=== PATIENT | male | born 1960 | race Asian ===

== ENCOUNTER 2019-08-11 11:13 | Emergency (ER) | payer MEDICAID ==
[~2019-08-11] VITALS: Ht 160 cm; Wt 72.6 kg
[2019-08-11 11:26] VITALS: BP 160/102
--- NOTE | 2019-08-11 11:40 | NUR ---
BIB FAMILY C/O MULTIPLE EPISODES OF VOMITING AND DIZZINESS THIS MORNING. PT IS UNABLE TO AMBULATE DUE TO GENERALIZED WEAKNESS. PATIENT DENIES POST AND STATES PAIN OF 0/10 AT THIS TIME; PT IS HYPERTENSIVE AND DID NOT TAKE [place] THIS MORNING. PATIENT POSITIONED FOR COMFORT; HOB ELEVATED; BEDRAILS UP X2; BED DOWN. ER MD MADE AWARE OF PT STATUS. PT IS ON MONITOR FOR VITAL SIGNS MONITORING. FAMILY MEMBERS ARE AT BEDSIDE.
--- NOTE | 2019-08-11 11:41 | NUR ---
NOTIFIED DR. ODOM REGARDING PT'S CONDITION.
--- NOTE | 2019-08-11 11:43 | NUR ---
DR. ODOM IS EVALUATING PT AT BEDSIDE.
--- NOTE | 2019-08-11 11:49 | NUR ---
DR. ODOM CALLED CODE BRAIN.
--- NOTE | 2019-08-11 11:49 | NUR ---
Trenton arevalo in [facility] - 08/11/[address] LEI TRINH.
--- NOTE | 2019-08-11 11:52 | NUR ---
ASSISTED STRATEGIC DEVELOPMENT MANAGER AND BRINGING PT TO CT SCAN. PT IS ON MONITOR.
--- NOTE | 2019-08-11 12:10 | NUR ---
Trenton arevalo in [facility] - 08/11/19 at 1246 by CHEMA PT IS BACK FROM CT SCAN ACCOMPANIED WITH KESHAV LAMB AND [employer]. PT IS ON MONITOR.
[2019-08-11 12:16] LABS: BASOPHILS % (AUTO) 0.2 % (0.0-2.0); HEMATOCRIT 45.9 % (36-52); HEMOGLOBIN 14.8 g/dL (12.0-18.0); LYMPHOCYTES # (AUTO) 0.3 K/uL (2.0-11.5); LYMPHOCYTES % (AUTO) 2.3 % (20.5-51.1); MEAN CORPUSCULAR HEMOGLOBIN 26 pg (27-31); MEAN CORPUSCULAR HGB CONC 32 g/dL (33-37); MEAN CORPUSCULAR VOLUME 82.1 fL (80-94); MONOCYTES # (AUTO) 0.3 K/uL (0.8-1.0); MONOCYTES % (AUTO) 2.5 % (1.7-9.3); NEUTROPHILS # (AUTO) 11.5 K/uL (1.8-7.7); PLATELET COUNT (AUTO) 297 K/uL (140-450); RED BLOOD CELL COUNT(AUTO) 5.59 MIL/uL (4.20-6.10); RED CELL DISTRIBUTION WIDTH 13.4 % (11.6-13.7); WHITE BLOOD COUNT (AUTO) 12.1 K/uL (4.8-10.8)
--- NOTE | 2019-08-11 12:20 | NUR ---
PT IS BACK FROM CT SCAN ACCOMPANIED WITH KESHAV LAMB AND [employer]. PT IS ON MONITOR.
[2019-08-11 12:25] LABS: ANION GAP 13.7 (8-16); CARBON DIOXIDE 27.9 mmol/L (21-32); CREATININE 1.1 mg/dL (0.7-1.3); POTASSIUM 3.6 mmol/L (3.5-5.1)
[2019-08-11] MEDS: ENALAPRILAT 2.5 MG/2 ML VIAL IVP ONE (12:27)
[2019-08-11 12:28] LABS: PROTHROMBIN TIME 10.4 secs (10.8-13.4)
[2019-08-11 12:30] LABS: ALBUMIN 4.4 g/dL (3.4-5.0); TOTAL BILIRUBIN 0.6 mg/dL (0.0-1.0)
[2019-08-11] MEDS: ONDANSETRON 4 MG/2 ML VIAL IVP ONE (12:31)
[2019-08-11] MEDS: MECLIZINE 25 MG TAB PO ONE (12:33)
[2019-08-11] MEDS: NACL 0.9% 1,000 ML IV ONE (12:36)
--- NOTE | 2019-08-11 12:41 | NUR ---
DR. ODOM IS REEVALUATING PT AT BEDSIDE AND TALKING TO FAMILY MEMBERS.
--- NOTE | 2019-08-11 13:22 | NUR ---
PT STATES FEELING A LITTLE BETTER. FAMILY MEMBERS ARE AT BEDSIDE. PT IS ON MONITOR TO CONTINUE MONITORING VITAL SIGNS.
--- NOTE | 2019-08-11 13:30 | NUR ---
TALKED TO THE FAMILY AND NOTIFIED THEM PT IS GOING TO BE TRANSFERED TO [facility] VIA AMBULANCE.
--- NOTE | 2019-08-11 13:39 | NUR ---
Patient to be transferred to [facility]. Is being transferred due to cerebellar bleeding. Receiving facility has accepting physician and available space. ER physician has signed transfer form. Patient or responsible constitution party has agreed to transfer and signed form. Patient belongings inventoried and will be sent with patient. Copy of nursing notes, lab reports, EKG, Physicians Orders and X-rays to be sent with patient. Report called to [facility] at receiving facility. [facility] ambulance service has been called for transfer. ETA is 20 mins.
--- NOTE | 2019-08-11 13:42 | NUR ---
PT IS BEING TRANSFERED TO [facility] ER VIA AMBULANCE. REPORT GIVEN TO [facility].
[2019-08-11 13:45] VITALS: BP 160/102
== END 2019-08-11 13:42 | disposition short-term general hospital (02) ==
LOC: MED 11:13
DX: I61.4 Nontraumatic intracerebral hemorrhage in cerebellum (principal); I10 Essential (primary) hypertension; R42 Dizziness and giddiness
CPT/HCPCS: 36415; 70450; 71045; 80053; 84484; 85025; 85610; 85730; 93005; 96361; 96374; 96375; 99291; J2405; J3490; J7030; J8597; Q0092